=== PATIENT | female | born 1980 | race Caucasian/White ===

== ENCOUNTER 2021-11-06 17:56 | Emergency (ER) | payer BC ==
[~2021-11-06] VITALS: Ht 165.1 cm; Wt 85.7 kg
[2021-11-06 18:02] VITALS: BP 139/86
[2021-11-06] MEDS ORDERED: IBUPROFEN 600 MG TAB PO ONE (18:20)
--- NOTE | 2021-11-06 18:20 | NUR ---
41/F AMBULATED TO BED 9 WITH USE OF CANE OTHER STEADY GAIT, C/O RIGHT ANKLE PAIN S/P TRIPPING AND FALLING WHILE WALKING AROUND 3PM. DENIES TAKING ANYTHING FOR PAIN, SWELLING NOTED TO ANKLE. DENIES LOC MEDHX: DENIES ALLERGIES: PENICILLINS
--- NOTE | 2021-11-06 18:21 | NUR ---
XR AT BEDSIDE PERFORMING PORTABLE XR
[2021-11-06] MEDS ORDERED: IBUP-2213 PO (18:58)
--- NOTE | 2021-11-06 19:08 | NUR ---
PT PLACED IN RIGHT AIR CAST SPLINT. CMS WNL BEFORE AND AFTER. PA NOTIFIED.
--- NOTE | 2021-11-06 19:25 | NUR ---
Pt report given to KIMBERLY DOWNS. Transfer of care at this time.
[2021-11-06 19:43] VITALS: BP 139/86
--- NOTE | 2021-11-06 19:43 | NUR ---
Patient discharged with v/s stable. Written and verbal after care instructions given and explained. Patient alert, oriented and verbalized understanding of instructions. Ambulatory with steady gait. All questions addressed prior to discharge. ID band removed. Patient advised to follow up with PMD. Rx of IBUPROFEN given. Work form sent home with patient. Patient educated on indication of medication including possible reaction and side effects. Opportunity to ask questions provided and answered.
== END 2021-11-06 19:43 | disposition home or self-care (01) ==
LOC: MED 17:56
DX: S93.491A Sprain of other ligament of right ankle, initial encounter (principal); Z88.0 Allergy status to penicillin; X58.XXXA Exposure to other specified factors, initial encounter; Y93.89 Activity, other specified; Y92.89 Other specified places as the place of occurrence of the external cause; Y99.8 Other external cause status
CPT/HCPCS: 29515; 73610; 73630; 99284; Q0092